=== PATIENT | female | born 1995 | race Two or more races ===

== ENCOUNTER 2024-05-16 14:35 | Emergency (ER) | payer MEDICAID ==
[~2024-05-16] VITALS: Ht 149.9 cm; Wt 113.6 kg
[2024-05-16 14:38] VITALS: BP 131/95; PULSE 78; RESP 18; TEMP 98.4; O2SAT 98
[2024-05-16] MEDS ORDERED: IBUP-1492 PO (16:58)
[2024-05-16] MEDS: IBUPROFEN 600 MG TABLET PO ONE (17:00)
== END 2024-05-16 17:43 | disposition home or self-care (01) ==
LOC: EMS 14:35 → EDSEX 14:35 → EMS 17:43
DX: S93.402A Sprain of unspecified ligament of left ankle, initial encounter (principal); X50.1XXA Overexertion from prolonged static or awkward postures, initial encounter; Y93.01 Activity, walking, marching and hiking; Y92.89 Other specified places as the place of occurrence of the external cause; Y99.8 Other external cause status
CPT/HCPCS: 29515; 99283